=== PATIENT | female | born 1990 | race Caucasian/White ===

== ENCOUNTER 2018-03-23 23:15 | Emergency (ER) | payer SELFPAY ==
[~2018-03-23] VITALS: Ht 165.1 cm; Wt 62.6 kg
[2018-03-23 23:25] VITALS: Ht 165.1 cm; Wt 62.6 kg
[2018-03-24 01:18] VITALS: BP 113/74
== END 2018-03-24 01:18 | disposition home or self-care (01) ==
LOC: ED 23:15
DX: S52.502D Unspecified fracture of the lower end of left radius, subsequent encounter for closed fracture with routine healing (principal); G43.909 Migraine, unspecified, not intractable, without status migrainosus; G89.29 Other chronic pain; X58.XXXD Exposure to other specified factors, subsequent encounter
CPT/HCPCS: J1885